=== PATIENT | male | born 1970 | race Caucasian/White ===

== ENCOUNTER → 2023-07-28 23:59 | Outpatient (BNV) | payer MEDICAID, SELFPAY | PROVIDERS: Visit Provider Internal Medicine Cardiovascular Disease | DX: I21.02 ST elevation (STEMI) myocardial infarction involving left anterior descending coronary artery (principal) | CPT/HCPCS: 92941; 92978; 93458; 99152 ==

== ENCOUNTER 2023-08-19 08:47 | Outpatient (AMB) | payer MEDICAID, SELFPAY ==
[2023-08-19 08:50] VITALS: BP 90/60; PULSE 71
--- NOTE | 2023-08-19 08:50 | A.OFFVIS_ITS ---
Intake Vital Signs 08/19/23 08:50 Weight 163 lb 2.273 oz BP 90/60 Blood Pressure Location Lt brachial Position Sitting Pulse 71 Pulse Source Pulse Oximeter Intake Visit Reasons: Cath fu (KM) Ophthalmology Surgical Technician Required: Yes Ophthalmology Surgical Technician Name: [id number] cesar Medication List - Last Reconciled 08/19/23 by Anabel Mcclellan, PIETRO-C aspirin (Adult Aspirin Regimen) 81 mg PO DAILY atorvastatin 80 mg PO BEDTIME carvedilol 6.25 mg PO BID colchicine 0.6 mg PO BID nicotine 1 patch transdermal DAILY ticagrelor 90 mg PO BID valsartan 40 mg PO BID varenicline 0.5 mg PO BID HPI Cath fu () HPI Details Louis is a 53-year-old male with past medical history of hypertension, smoking who recently presented to [facility] with chest discomfort. He was transferred to [facility] with anterior STEMI. Underwent cardiac catheterization with stenting of the proximal LAD. His EF was reduced and he was sent home with LifeVest and appropriate med management. Today he reports he has been doing well since his hospital discharge. He denies having recurrent chest discomfort like what he presented to the hospital with. He has had quick sharp pains to his left chest lasting a 2nd and resolving. No shortness of breath, palpitations, lightheadedness, presyncope, syncope, PND, orthopnea or edema. Taking all meds as directed. No bleeding issues reported. Certified drafter automotive design used. Patient hearing impaired. HPI Comments History of Present Illness Details Bartolome is a 53 yo male [facility] History History of cardiac cath Family History Brother Diabetes High blood pressure Social History Patient Tobacco Use Status: Former Tobacco user Review of Systems Const All systems reviewed & are unremarkable except as noted in HPI and below ENT Denies dizziness Card Denies chest pain, Denies chest pain at rest, Denies chest pain with activity, Denies rapid heart rate, Denies pedal edema, Denies edema, Denies leg edema, Denies lightheadedness, Denies palpitations, Denies dyspnea, Denies dyspnea on exertion and Denies orthopnea Resp Denies cough, Denies dyspnea and Denies dyspnea on exertion GI Denies hematochezia and Denies change in stool character Musc Denies abnormal gait, Denies limited range of motion, Denies muscle cramps, Denies muscle weakness, Denies numbness, Denies radiating pain into limb, Denies stiffness and Denies tingling Neuro Denies abnormal gait, Denies dizziness, Denies numbness and Denies tingling Endo Denies palpitations Physical Exam Vital Signs: Last Vital Signs Pulse 71 08/19/23 08:50 BP 90/60 08/19/23 08:50 Const General: cooperative, healthy appearing, comfortable and no acute distress Orientation/consciousness: patient oriented x3 Neck Neck: Yes normal visual inspection and Yes no JVD Resp Effort & Inspection: normal respiratory effort Auscultation: clear to auscultation bilaterally, no crackles, no rales, no rhonchi and no wheezes Cardio Jugular venous distension: no JVD Rate: regular rate Rhythm: regular rhythm Heart sounds: S1 normal heart sound present, S2 normal heart sound present, no murmurs and no rubs Neuro General: patient oriented x3 Extrem General: Yes normal to inspection and No no pedal edema Psych Appearance: grossly normal Mental Status: mental status grossly normal Speech and movement: Normal speech and movement present Assessment & Plan Assessment & Plan (1) STEMI (ST elevation myocardial infarction): Code(s): I21.3 - ST elevation (STEMI) myocardial infarction of unspecified site Plan: Anterior STEMI 07/28/2023. Underwent emergent cardiac catheterization at [facility] for chest discomfort, elevated troponin and ST elevations on EKG. Cardiac catheterization showed proximal LAD, mid portion 90% stenosis with thrombus present, 1st diagonal 100% stenosis. A ASHLEY was placed to the LAD. His echocardiogram showed EF 35% with anterior wall hypokinesis. While at [facility] he did port recurrent chest discomfort and was treated for pericarditis, started on colchicine 0.6 mg b.i.d.. He was started on aspirin indefinitely. Brilinta 90 mg b.i.d. uninterrupted for at least 1 year. High- dose atorvastatin, carvedilol, valsartan. Nicotine patch was given to help with smoking cessation. Today he reports doing well with no recurrent chest discomfort like what brought him to the emergency room. He has had quick sharp pains to the left chest region. He starts cardiac rehab next week. He is wearing his LifeVest faithfully. He has received no shocks from the device. Has been doing only light activities but plans to return to work, light duty this week. He works as a cashier ticket selling and stocking person. Will plan for a limited echocardiogram 4-6 weeks post HI to reassess EF. If EF is greater than 35% then will plan to discontinue LifeVest. Continue current med management. Signs and symptoms of angina reviewed. Cardiology follow-up in 2-3 months, sooner if needed. (2) HTN (hypertension): Code(s): I10 - Essential (primary) hypertension Plan: Running on the low side today. Asymptomatic. Continue current meds. (3) Smoking: Code(s): F17.200 - Nicotine dependence, unspecified, uncomplicated Plan: Working on cessation. Using nicotine patch (4) History of cardiac cath: Comment: 07/28/2023, left main normal, lad proximal mid 90% stenosis, thrombus present, 1st diagonal 100% stenosis, RCA mild irregularities less than 30%, left circumflex minimal irregularities, proximal ostial less than 30% stenosis, ASHLEY placed to the LAD. Code(s): Z98.890 - Other specified postprocedural states Plan: Right radial catheterization site healing well (5) Hospital discharge follow-up: Code(s): Z09 - Encounter for follow-up examination after completed treatment for conditions other than malignant neoplasm Plan: As above Plan Time spent on chart review, documentation, interview and assessment Orders: Orders CA echo limited [address]3 - [address] elevation (STEMI) myocardial infarction of unspecified site Coding Level of Care Code Est Pt Level 4 (82589) Diagnoses STEMI (ST elevation myocardial infarction) I21.3 HTN (hypertension) I10 Smoking F17.200 History of cardiac cath Z98.890 Hospital discharge follow-up Z09 Time Spent (min) 28
== END 2023-08-19 09:35 | disposition home or self-care (01) ==
PROVIDERS: PCP Nurse Practitioner Family; Visit Provider Nurse Practitioner Family
DX: I21.3 ST elevation (STEMI) myocardial infarction of unspecified site (principal); I10 Essential (primary) hypertension; F17.200 Nicotine dependence, unspecified, uncomplicated; Z98.890 Other specified postprocedural states; Z09 Encounter for follow-up examination after completed treatment for conditions other than malignant neoplasm
CPT/HCPCS: 99214

== ENCOUNTER → 2023-08-19 08:47 | Outpatient (BNVA) | payer MEDICAID, SELFPAY | PROVIDERS: PCP Nurse Practitioner Family; Visit Provider Nurse Practitioner Family | DX: Z09 Encounter for follow-up examination after completed treatment for conditions other than malignant neoplasm (principal); I10 Essential (primary) hypertension; I21.3 ST elevation (STEMI) myocardial infarction of unspecified site; F17.200 Nicotine dependence, unspecified, uncomplicated; Z98.890 Other specified postprocedural states | CPT/HCPCS: 99212 ==

== ENCOUNTER → 2023-09-13 10:44 | Outpatient (REF) | payer MEDICAID, SELFPAY ==
--- NOTE | 2023-09-13 10:52 | CA_ITS ---
Transthoracic Echocardiogram Patient (Last, First, Middle): Bartolome Spencer, Gender: Male Date of : 1970 Age: 53 Procedure Date: 09/13/2023 Procedure Type: Transthoracic Echocardiogram Location: OP Height: 172.72 cm Weight: 73.03 kg BSA: 1.86 m2 Heart Rate: bpm BP: 122 / 85 mmHg Keno Attendant: YOLANDA Parada MD: Anabel Mcclellan WIND PROJECTS SUPERVISOR-C Expenditure Requisition Clerk: Jonathan Santana MD Symptoms: I21.3 - ST elevation (STEMI) myocardial infarction of unspecified site Study Quality: Adequate w/Contrast ECG Rhythm: Sinus Conclusions: - Moderately reduced LV ejection fraction of 35-40% with LAD territory wall motion abnormality with grade 1 diastolic dysfunction Findings Procedure Information Contrast agent, definity, is being given per protocol without apparent complications. Left Ventricle Mildly increased left ventricular cavity size. The left ventricular systolic function is moderately decreased. The visually estimated ejection fraction is between 35-40%. Spectral Doppler is indicative of an impaired relaxation filling pattern. E/E prime ratio is <8, consistent with normal filling pressures. Wall Motion Rest Echo Findings The anterior wall and mid anteroseptal segment are hypokinetic. The inferoseptal wall and apical septum segment are akinetic. All other scored wall segments showed normal motion. Prior Study Comparison No prior study available for comparison. Measurements 2D Linear Measurements IVSd: 0.90 0.6-0.9/0.6-1.0 cm LVIDd: 5.73 3.9-5.3/4.2-5.9 cm LVIDd Index: 3.08 2.4-3.2/2.2-3.1 cm/m2 LVIDs: 4.49 2.0-3.6 cm LVPWd: 0.96 0.7-1.1 cm LV Mass: 257.82 67-162/88-224 g LV Mass Index: 138.61 43-95/49-115 g/m2 LVOT Diam: 2.00 3.0+(-)1.3 cm 2D Systolic Function EF 4C: 39.90 >55% EF 2C: 37.30 >55% EF BiP: 38.10 >55% Mitral Valve MV Pk E: 0.84 MV PK A: 0.32 MV Decel Time: 161.00 E/A: 2.60 E'Lateral: 9.25 E'Medial: 6.31 E/E' Med: 13.40 E/E' Lat: 9.10 PHT: 47.00 MVA PHT: 4.68 Decel [place]: 5.25 LVOT LVOT Diam: 2.00 LVOT Area: 3.14 Diastolic Function MV Pk E: 0.84 MV Pk A: 0.32 E/A: 2.60 E'Medial: 6.31 E/E' Med: 13.40 E' Laterial: 9.25 E/E' Lat: 9.10 Updated in Other Vendor System with Status of Final Jonathan Santana MD electronically signed on 09/14/2023 6:06:57 AM with status of Final
== END ==
LOC: HO.CARD 10:44
PROVIDERS: PCP Nurse Practitioner Family; Visit Provider Nurse Practitioner Family
DX: I21.3 ST elevation (STEMI) myocardial infarction of unspecified site (principal)
CPT/HCPCS: 93308; Q9957

== ENCOUNTER → 2023-09-13 10:52 | Outpatient (BNV) | payer MEDICAID, SELFPAY | PROVIDERS: PCP Nurse Practitioner Family; Visit Provider Internal Medicine Cardiovascular Disease | DX: I21.3 ST elevation (STEMI) myocardial infarction of unspecified site (principal) | CPT/HCPCS: 93308 ==

== ENCOUNTER 2023-09-20 09:27 | Outpatient (AMB) | payer MEDICAID, SELFPAY ==
--- NOTE | 2023-09-20 10:05 | HO.SPINEOV ---
Intake Visit Reasons: low back pain Intake Note: is here today c/o Low back pain. Ground Operations Superintendent Required: Yes Ground Operations Superintendent Name: ASL Tablet Assessment & Plan Assessment & Plan (1) Lumbar radiculopathy: Code(s): M54.16 - Radiculopathy, lumbar region Category: Medical Plan Dear Darling, Thank you for referring Mr Spencer to our office today. He is a very nice hearing impaired 53-year-old gentleman who has had about 2 years of pain starting in his low back going down into his left buttock, left posterolateral thigh and into his outer calf and top of his foot. There is also tingling and numbness associated with this. He also reports seeing abnormal movements of his foot. To this point he has done no dedicated conservative treatment other than taking hot baths and an occasional [id number] pain medication as needed. Denies any pain in the right leg. No physical therapy or injections yet. He underwent an MRI showing some mild degenerative disc disease and was sent for evaluation. The pain will get worse as he is up and moving around throughout the day, but if he has a day where he is not doing all that much it has not all that bothersome. PMH: Had an [facility] about a month and a half ago, he could not give me extensive details but it sounds like it was significant 1, they are continuing to monitor his heart with some type of remote device. He underwent a stent placement and has been on Brilinta and aspirin. He has hypertension, recently quit smoking because of his heart attack but outside of that denies any problems with other medical conditions including pulmonary problems, kidney problems, liver problems, previous back surgery, previous abdominal surgery, cancer, stroke Social hx: Quit smoking about a month and a half ago, denies any significant alcohol use, no recreational drugs Medications: Carvedilol, colchicine, baby aspirin, Brilinta, variance I clean, Lipitor and valsartan Allergies: None Physical exam: Awake alert oriented, I used a hearing impaired still operator gin through the [employer] video phone device to help with this visit. He has full strength of bilateral lower extremities but has absent reflexes at the patella and the Achilles. He does have fasciculations of his toes on the 2nd and 3rd toes with intermittent contractions. No sensory loss. Imaging review: He has a lumbar MRI done at [facility] in July of 2023 showing some very mild disc degeneration but no nerve compression. Impression: 53-year-old male presents with what sounds like an L5 radiculopathy but no MRI findings that appear compatible with compressive etiology. He does have subjective sensory changes but no focal sensation loss on exam. He does have fasciculations of his toes on the left foot. He also has absent reflexes. I am not sure what to make of the source with the symptoms, but I am going to send him for an EMG to see if we can localize something with that. Depending on the results, we can triage him from there. I would consider cortisone injection but because of his dual anti-platelet therapy right after heart attack I do not think he would be a candidate. I will call him with the EMG results. Thank you for allowing us to care for your patient. The total time spent with this visit with this patient was 45 minutes reviewing history, physical exam, lumbar imaging review, and implementation of treatment plan or further diagnostic testing Yousuf Blankenship MD,PhD [facility] Orders: Orders NE electromyogram (EMG) Today M54.16 - Radiculopathy, lumbar region Coding Level of Care Code New Pt Level 4 (18111) Diagnoses Lumbar radiculopathy M54.16
== END 2023-09-20 10:53 | disposition home or self-care (01) ==
PROVIDERS: PCP Nurse Practitioner Family; Visit Provider Physician Assistant
DX: M54.16 Radiculopathy, lumbar region (principal)
CPT/HCPCS: 99204

== ENCOUNTER → 2023-09-20 09:27 | Outpatient (BNVA) | payer MEDICAID, SELFPAY | PROVIDERS: PCP Nurse Practitioner Family; Visit Provider Physician Assistant | DX: M54.16 Radiculopathy, lumbar region (principal) | CPT/HCPCS: 99212 ==

== ENCOUNTER 2023-09-27 12:52 | Outpatient (REF) | payer MEDICAID, SELFPAY ==
--- NOTE | 2023-09-27 12:57 | HM_ITS ---
* Total procedure length 30 days. Wear time 25 days. * Underlying rhythm is sinus, with an average ventricular rate of 82/Min. * About 37% of the time, rate > 100/Min. * No significant tachyarrhythmias. * No significant pauses or high-grade AV blocks. * Symptoms of chest pressure, dizziness, shortness of breath associated with sinus rhythm/sinus tachycardia. MTDD
--- NOTE | 2023-09-27 12:57 | EMG_ITS ---
Chief complaint: At least 2 years of numbness on left foot. Denies back pain. Denies upper extremity symptoms. Twitching on left toes seen. No other fasciculations seen on other parts of the body. MMT 5/5 bilateral upper and lower extremities. Depressed reflex on left patella and Achillis. No clonus. No spasticity seen. Flat EDB muscle on left. Reason for referral: Evaluate for neuropathy Referred by: Yousuf GONSALES Procedure done: Order was for left lower extremity, right lower extremity done for comparison Precautions and/or limitations: Hearing impairment, seen with distribution sales representative. The limb temperature was monitored continuously and remained between 32-36 degrees C during the performance of the NCS. Nerve Conduction Studies Anti Sensory Summary Table ?Stim Site NR Onset (ms) Norm Onset (ms) Peak (ms) Norm Peak (ms) O-P Amp (?V) Norm O-P Amp Site1 Site2 Delta-0 (ms) Dist (cm) Antonio (m/s) Norm Antonio (m/s) Left Sural Anti Sensory (Lat Mall) Calf ? 2.9 3.7 <4.0 7.7 >5.0 Calf Lat Mall 2.9 14.0 48 Right Sural Anti Sensory (Lat Mall) Calf ? 3.4 3.8 <4.0 3.3 >5.0 Calf Lat Mall 3.4 14.0 41 #2 ? 3.3 4.0 2.6 #3 ? 2.8 3.7 3.1 Motor Summary Table ?Stim Site NR Onset (ms) Norm Onset (ms) O-P Amp (mV) Norm O-P Amp iAmp (mV) Amp (1st) (%) Site1 Site2 Delta-0 (ms) Dist (cm) Antonio (m/s) Norm Antonio (m/s) Left Peroneal Motor (Ext Dig Brev) Ankle ? 6.6 <4.0 1.1 >2.5 1.3 100.0 Ankle Ext Dig Brev 6.6 0.0 B Fib ? 15.8 0.9 1.0 81.8 B Fib Ankle 9.2 32.5 35 >40 Poplt ? 17.3 1.0 1.0 90.9 Poplt B Fib 1.5 5.0 33 >40 Right Peroneal Motor (Ext Dig Brev) Ankle ? 4.9 <4.0 4.1 >2.5 5.5 100.0 Ankle Ext Dig Brev 4.9 0.0 B Fib ? 13.0 3.9 5.4 95.1 B Fib Ankle 8.1 31.5 39 >40 Poplt ? 14.2 3.9 5.2 95.1 Poplt B Fib 1.2 6.0 50 >40 Left Tibial Motor (Abd Eric Brev) Ankle ? 4.6 <5 3.1 >2.5 4.4 100.0 Ankle Abd Eric Brev 4.6 0.0 Knee ? 15.2 2.9 4.2 93.5 Knee Ankle 10.6 39.0 37 >40 H Reflex Studies ?NR H-Lat (ms) L-R H-Lat (ms) L-R Lat Norm Left Tibial (Gastroc) ? NR <2.0 Right Tibial (Gastroc) NR <2.0 EMG ?Side Muscle Nerve Root Ins Act Fibs Psw Amp Dur Poly Recrt Int Pat Comment Right AbdHallucis MedPlantar S1-2 Nml Nml Nml Nml Nml 0 Nml Complete Right AntTibialis Dp Br Peron L4-5 Incr 1+ 1+ Nml Nml 0 Nml Complete Right PostTibialis Tibial L5, S1 Incr 1+ 1+ Nml Nml 0 Nml Complete Right MedGastroc Tibial S1-2 Nml Nml Nml Nml Nml 0 Nml Complete Right VastusMed Femoral L2-4 Nml Nml Nml Nml Nml 0 Nml Complete Left AbdHallucis MedPlantar S1-2 Nml Nml Nml Nml Nml 0 Nml Complete Left AntTibialis Dp Br Peron L4-5 Nml Nml Nml Nml Nml 0 Nml Complete Left PostTibialis Tibial L5, S1 Nml Nml Nml Nml Nml 0 Nml Complete Left MedGastroc Tibial S1-2 Incr 1+ 1+ Nml Nml 0 Nml Complete Left VastusMed Femoral L2-4 Nml Nml Nml Nml Nml 0 Nml Complete Paraspinal EMG ?Side Muscle Nerve Root Ins Act Fibs Psw Comment Right Lumbar Upper Rami Nml Nml Nml Right Lumbar Mid Rami Nml Nml Nml Right Lumbar Lower Rami Nml Nml Nml Left Lumbar Upper Rami Nml Nml Nml Left Lumbar Mid Rami Nml Nml Nml Left Lumbar Lower Rami Nml Nml Nml FINDINGS: Left peroneal nerve showed prolonged distal latency, small amplitude and slow conduction velocity. Right peroneal nerve showed prolonged distal latency, bigger amplitudes compared to left, and slow conduction velocity distally . Left tibial nerve showed normal distal latency, normal amplitudes with slow conduction velocity. Right sural nerve showed smaller amplitude compared to left, with normal peak latencies. Left sural nerve was within normal. H reflexes were absent, bilateral. Concentric needle EMG was performed in selected muscles of the bilateral lower extremity and lumbar paraspinals. Study revealed signs of electric abnormalities as shown in the table below. Right tibialis anterior, right posterior tibialis, left medial gastrocnemius showed increased insertional activity, small PSWs and small fibrillations. No denervation seen on lumbar paraspinals. IMPRESSION: 1. This is an abnormal study. 2. 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 Thank you for your kind referral. Raine Morrow MD, [place] Board Certified, [place] Board of Physical Medicine and Rehabilitation (ABPMR) Board Certified, [place] Board of Electrodiagnostic Medicine (ABEM) CODIN 18073 x 2 MTDD
== END 2023-09-27 12:53 | disposition home or self-care (01) ==
LOC: HO.NEURO 12:52
PROVIDERS: PCP Nurse Practitioner Family; Visit Provider Physician Assistant
DX: I42.9 Cardiomyopathy, unspecified (principal); M54.16 Radiculopathy, lumbar region
CPT/HCPCS: 93270; 95886; 95910

== ENCOUNTER → 2023-09-27 12:57 | Outpatient (BNV) | payer MEDICAID, SELFPAY | PROVIDERS: PCP Nurse Practitioner Family; Visit Provider Physical Medicine & Rehabilitation | DX: M79.672 Pain in left foot (principal); M79.671 Pain in right foot; R20.2 Paresthesia of skin | CPT/HCPCS: 95886; 95910 ==

== ENCOUNTER → 2023-09-27 12:57 | Outpatient (BNV) | payer MEDICAID, SELFPAY | PROVIDERS: PCP Nurse Practitioner Family; Visit Provider Internal Medicine | DX: R00.0 Tachycardia, unspecified (principal) | CPT/HCPCS: 93272 ==

== ENCOUNTER 2023-12-06 08:30 | Outpatient (AMB) | payer MEDICAID, SELFPAY ==
[2023-12-06 08:51] VITALS: BP 128/78; PULSE 68; BMI 24.5
--- NOTE | 2023-12-06 08:51 | MHC.OFFVIS ---
Vital Signs 12/06/23 08:51 Height 5 ft 8 in Weight 160 lb 14.999 oz BMI 24.5 BP 128/78 Blood Pressure Location Lt brachial Position Sitting Pulse 68 Pulse Source Monitor Intake Visit Reasons: f/up rebollar echo Speed Belt Sander Required: Yes Speed Belt Sander Name: no one available Medication List - Last Reconciled 12/06/23 by Anabel Mcclellan, OIL TANKER CAPTAIN-C aspirin (Adult Aspirin Regimen) 81 mg PO DAILY atorvastatin 80 mg PO BEDTIME carvedilol 6.25 mg PO BID 90 days colchicine 0.6 mg PO BID 90 days sacubitril-valsartan 24-26 mg (Entresto) 1 tab PO BID ticagrelor 90 mg PO BID 90 days varenicline 1 mg PO BID 90 days HPI HPI f/up rebollar echo: Details: Bartolome is a 53-year-old male with past medical history of hypertension, smoking who recently presented to [facility] with chest discomfort. He was transferred to [facility] with anterior STEMI. Underwent cardiac catheterization with stenting of the proximal LAD. His EF was reduced and he was sent home with LifeVest and appropriate med management. He underwent a repeat limited echo showing EF 35-40% and Lifevest was discontinued. He wore and cardiac event monitor and now presents for follow up. Today he reports he has been doing well since his last visit. He denies having recurrent issues with chest discomfort. No shortness of breath, palpitations, lightheadedness, presyncope, syncope, PND, orthopnea or edema. Taking all meds as directed. No bleeding issues reported. He is able to lip read and speak during this visit and declines the need for infrastructure design engineer. Patient hearing impaired. [facility] Surgical History History of cardiac cath Family History Brother Diabetes High blood pressure Social History Patient Tobacco Use Status: Former Tobacco user Review of Systems Const All systems reviewed & are unremarkable except as noted in HPI and below Denies weakness ENT Denies dizziness Card Denies chest pain, Denies chest pain with activity, Denies syncope, Denies rapid heart rate, Denies pedal edema, Denies edema, Denies leg edema, Denies lightheadedness, Denies palpitations, Denies dyspnea, Denies dyspnea on exertion and Denies orthopnea Resp Denies cough, Denies dyspnea and Denies dyspnea on exertion GI Denies hematochezia and Denies change in stool character Musc Denies abnormal gait, Denies muscle cramps, Denies muscle weakness, Denies numbness, Denies radiating pain into limb and Denies tingling Neuro Denies abnormal gait, Denies dizziness, Denies syncope, Denies numbness, Denies tingling and Denies weakness Endo Denies palpitations Physical Exam Vital Signs: Last Vital Signs Pulse 68 12/06/23 08:51 BP 128/78 12/06/23 08:51 BMI result Body Mass Index 24.5 Const General: cooperative, healthy appearing, comfortable and no acute distress Orientation/consciousness: patient oriented x3 Neck Neck: Yes normal visual inspection and Yes no JVD Resp Effort & Inspection: normal respiratory effort Auscultation: clear to auscultation bilaterally, no crackles, no rales, no rhonchi and no wheezes Cardio Jugular venous distension: no JVD Rate: regular rate Rhythm: regular rhythm Heart sounds: S1 normal heart sound present, S2 normal heart sound present, no murmurs and no rubs Neuro General: patient oriented x3 Extrem General: Yes normal to inspection and No no pedal edema Psych Appearance: grossly normal Mental Status: mental status grossly normal Speech and movement: Normal speech and movement present Office Procedures EKG Details: Today, read by me, Sinus rhythm, anteroseptal infarct, rate 68, QTc 404ms [id number], Complete Assessment & Plan Assessment & Plan (1) STEMI (ST elevation myocardial infarction): Code(s): I21.3 - ST elevation (STEMI) myocardial infarction of unspecified site Category: Medical Plan: Anterior STEMI 07/28/2023. Underwent emergent cardiac catheterization at [facility] for chest discomfort, elevated troponin and ST elevations on EKG. Cardiac catheterization showed proximal LAD, mid portion 90% stenosis with thrombus present, 1st diagonal 100% stenosis. A ASHLEY was placed to the LAD. His echocardiogram showed EF 35% with anterior wall hypokinesis. While at [facility] he did port recurrent chest discomfort and was treated for pericarditis, started on colchicine 0.6 mg b.i.d.. He was started on aspirin indefinitely. Brilinta 90 mg b.i.d. uninterrupted for at least 1 year. High-dose atorvastatin, carvedilol, valsartan. Nicotine patch was given to help with smoking cessation. He did complete a few sessions of cardiac rehab. A limited echocardiogram was done on 4261 showing EF 35-40%, LAD territory wall motion abnormality, grade 1 diastolic dysfunction. His life vest was discontinued following that result. His valsartan was changed to Entresto. He did undergo a cardiac event monitor on 09/27/2023 which he wore for 25 days showing sinus rhythm with average heart rate 82, 37% of the time greater than 100, no significant tachyarrhythmias seen. Today he reports doing well with no recurrent chest discomfort. 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 He reports good activity tolerance. Continue current aspirin, Brilinta, atorvastatin, carvedilol and Entresto. Will have him stop colchicine at this time as it has been used greater than 3 months and he has no chest discomfort. Will have him update labs including CMP and lipids. Signs and symptoms of angina reviewed. Cardiology follow-up in 3 months, sooner if needed. (2) HTN (hypertension): Code(s): I10 - Essential (primary) hypertension Category: Medical Plan: Well controlled at this time. Continue carvedilol, Entresto. (3) Smoking: Code(s): F17.200 - Nicotine dependence, unspecified, uncomplicated Category: Social Hx Plan: Working on cessation. Still using nicotine patch. Admits to smoking a few cigarettes daily. (4) History of cardiac cath: Comment: 07/28/2023, left main normal, lad proximal mid 90% stenosis, thrombus present, 1st diagonal 100% stenosis, RCA mild irregularities less than 30%, left circumflex minimal irregularities, proximal ostial less than 30% stenosis, ASHLEY placed to the LAD. Code(s): Z98.890 - Other specified postprocedural states Category: Surgical Plan: As above (5) Cardiomyopathy: Code(s): I42.9 - Cardiomyopathy, unspecified Category: Medical Plan: As above, ischemic. No signs of heart failure on examination. Continue neurohormonal modulation with carvedilol and Entresto. Not requiring diuretic therapy. Plan Time spent on chart review, documentation, interview and assessment Orders: Orders Lipid Panel Today I21.3 - ST elevation (STEMI) myocardial infarction of unspecified site Comprehensive Met. Panel Today I42.9 - Cardiomyopathy, unspecified Medications: Discontinued colchicine Give tablet and not capsule Discontinued Reason: Doctor's Order 0.6 mg PO BID 90 days 180 tabs 1RF Coding Level of Care Code Est Pt Level 4 (69519) Diagnoses STEMI (ST elevation myocardial infarction) I21.3 HTN (hypertension) I10 Smoking F17.200 History of cardiac cath Z98.890 Cardiomyopathy I42.9 CPT Codes EKG - CPT: 10816-[id number], Complete ([id number]) Time Spent (min) 28
== END 2023-12-06 09:52 | disposition home or self-care (01) ==
PROVIDERS: PCP Nurse Practitioner Family; Visit Provider Nurse Practitioner Family
DX: I21.3 ST elevation (STEMI) myocardial infarction of unspecified site (principal); I10 Essential (primary) hypertension; F17.200 Nicotine dependence, unspecified, uncomplicated; Z98.890 Other specified postprocedural states; I42.9 Cardiomyopathy, unspecified
CPT/HCPCS: 93010; 99214

== ENCOUNTER → 2023-12-06 08:30 | Outpatient (BNVA) | payer MEDICAID, SELFPAY | PROVIDERS: PCP Nurse Practitioner Family; Visit Provider Nurse Practitioner Family | DX: I10 Essential (primary) hypertension (principal); I21.3 ST elevation (STEMI) myocardial infarction of unspecified site; F17.200 Nicotine dependence, unspecified, uncomplicated; I42.9 Cardiomyopathy, unspecified; Z98.890 Other specified postprocedural states | CPT/HCPCS: 93005; 99212 ==

== ENCOUNTER 2024-02-21 08:45 | Outpatient (AMB) | payer MEDICAID, SELFPAY ==
[2024-02-21 09:07] VITALS: BP 122/78; PULSE 70; BMI 24.5
--- NOTE | 2024-02-21 09:07 | A.OFFVIS_ITS ---
Vital Signs 02/21/24 09:07 Height 5 ft 8 in Weight 160 lb 14.999 oz BMI 24.5 BP 122/78 Blood Pressure Location Lt brachial Position Sitting Pulse 70 Pulse Source Pulse Oximeter Intake Visit Reasons: 3m follow up Truck Body Builder Apprentice Required: Yes Truck Body Builder Apprentice Name: RACIEL Sign Language Allergies No Known Allergies Allergy (Verified 02/21/24 11:18) Medication List - Last Reconciled 02/21/24 by Anabel Mcclellan NP-C aspirin (Adult Aspirin Regimen) 81 mg PO DAILY atorvastatin 80 mg PO BEDTIME carvedilol 6.25 mg PO BID 90 days sacubitril-valsartan 24-26 mg (Entresto) 1 tab PO BID ticagrelor 90 mg PO BID 90 days varenicline 1 mg PO BID 90 days HPI HPI 3m follow up: Details: Bartolome is a 53-year-old male with past medical history of hypertension, smoking who presented to [facility], 07/2023 with chest discomfort. He was transferred to [facility] with anterior STEMI. Underwent cardiac catheterization with stenting of the proximal LAD. His EF was reduced and he was sent home with LifeVest and appropriate med management. He underwent a repeat limited echo showing EF 35-40% and Lifevest was discontinued. He wore and cardiac event monitor which did not show significant arrhythmia. He now presents for follow up. Today he reports he has been doing well since his last visit in November. He denies having recurrent issues with chest discomfort. No shortness of breath, palpitations, lightheadedness, presyncope, syncope, PND, orthopnea or edema. Taking all meds as directed. No bleeding issues reported. He has good activity tolerance. He is hearing impaired. licensed social worker used at this visit. [facility] Surgical History History of cardiac cath Family History Brother Diabetes High blood pressure Social History Patient Tobacco Use Status: Former Tobacco user Review of Systems Const All systems reviewed & are unremarkable except as noted in HPI and below Denies weakness ENT Denies dizziness Card Denies chest pain, Denies chest pain with activity, Denies syncope, Denies rapid heart rate, Denies pedal edema, Denies edema, Denies leg edema, Denies lightheadedness, Denies palpitations, Denies dyspnea, Denies dyspnea on exertion and Denies orthopnea Resp Denies cough, Denies dyspnea and Denies dyspnea on exertion GI Denies hematochezia and Denies change in stool character Musc Denies abnormal gait, Denies muscle cramps, Denies muscle weakness, Denies numbness, Denies radiating pain into limb and Denies tingling Neuro Denies abnormal gait, Denies dizziness, Denies syncope, Denies numbness, Denies tingling and Denies weakness Endo Denies palpitations Physical Exam Vital Signs: Last Vital Signs Pulse 70 02/21/24 09:07 BP 122/78 02/21/24 09:07 BMI result Body Mass Index 24.5 Const General: cooperative, healthy appearing, comfortable and no acute distress Orientation/consciousness: patient oriented x3 HEENT Other: hearing impaired Neck Neck: Yes normal visual inspection and Yes no JVD Resp Effort & Inspection: normal respiratory effort Auscultation: clear to auscultation bilaterally, no crackles, no rales, no rhonchi and no wheezes Cardio Jugular venous distension: no JVD Rate: regular rate Rhythm: regular rhythm Heart sounds: S1 normal heart sound present, S2 normal heart sound present, no murmurs and no rubs Neuro General: patient oriented x3 Extrem General: Yes normal to inspection and No no pedal edema Psych Appearance: grossly normal Mental Status: mental status grossly normal Speech and movement: Normal speech and movement present Assessment & Plan Assessment & Plan (1) STEMI (ST elevation myocardial infarction): Code(s): I21.3 - ST elevation (STEMI) myocardial infarction of unspecified site Category: Medical Plan: Anterior STEMI 07/28/2023. Underwent emergent cardiac catheterization at [facility] for chest discomfort, elevated troponin and ST elevations on EKG. Cardiac catheterization showed proximal LAD, mid portion 90% stenosis with thrombus present, 1st diagonal 100% stenosis. A ASHLEY was placed to the LAD. His echocardiogram showed EF 35% with anterior wall hypokinesis. While at [facility] he did port recurrent chest discomfort and was treated for pericarditis, started on colchicine 0.6 mg b.i.d.. He was started on aspirin indefinitely. Brilinta 90 mg b.i.d. uninterrupted for at least 1 year. High- dose atorvastatin, carvedilol, valsartan. He did complete a few sessions of cardiac rehab. A limited echocardiogram was done on 09/13/23 showing EF 35-40%, LAD territory wall motion abnormality, grade 1 diastolic dysfunction. His life vest was discontinued following that result. His valsartan was changed to Entresto. He did undergo a cardiac event monitor on 09/27/2023 which he wore for 25 days showing sinus rhythm with average heart rate 82, 37% of the time greater than 100, no significant tachyarrhythmias seen. Today he reports doing well with no recurrent chest discomfort. 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 He reports good activity tolerance. Continue current aspirin, Brilinta, atorvastatin, carvedilol and Entresto. He tells me labs are followed by his PCP. Will reach out to that office to see if they have an updated lipid profile. Signs and symptoms of angina reviewed. Cardiology follow-up in 3-4 months, sooner if needed. (2) HTN (hypertension): Code(s): I10 - Essential (primary) hypertension Category: Medical Plan: Well controlled at this time. Continue carvedilol, Entresto. (3) Smoking: Code(s): F17.200 - Nicotine dependence, unspecified, uncomplicated Category: Social Hx Plan: Working on cessation. (4) History of cardiac cath: Comment: 07/28/2023, left main normal, lad proximal mid 90% stenosis, thrombus present, 1st diagonal 100% stenosis, RCA mild irregularities less than 30%, left circumflex minimal irregularities, proximal ostial less than 30% stenosis, ASHLEY placed to the LAD. Code(s): Z98.890 - Other specified postprocedural states Category: Surgical Plan: As above (5) Cardiomyopathy: Code(s): I42.9 - Cardiomyopathy, unspecified Category: Medical Plan: As above, ischemic. No signs of heart failure on examination. Continue neurohormonal modulation with carvedilol and Entresto. Not requiring diuretic therapy. Plan Time spent on chart review, documentation, interview and assessment Medications: Refilled sacubitril-valsartan 24-26 mg (Entresto) 1 tab PO BID 180 tabs 3RF carvedilol must administer with a meal/food 6.25 mg PO BID 90 days 180 tabs 3RF Coding Level of Care Code Est Pt Level 4 (19091) Complex EM visit Add On G2211 Diagnoses STEMI (ST elevation myocardial infarction) I21.3 HTN (hypertension) I10 Smoking F17.200 History of cardiac cath Z98.890 Cardiomyopathy I42.9 Time Spent (min) 30
== END 2024-02-21 09:33 | disposition home or self-care (01) ==
PROVIDERS: PCP Nurse Practitioner Family; Visit Provider Nurse Practitioner Family
DX: I21.3 ST elevation (STEMI) myocardial infarction of unspecified site (principal); I10 Essential (primary) hypertension; F17.200 Nicotine dependence, unspecified, uncomplicated; Z98.890 Other specified postprocedural states; I42.9 Cardiomyopathy, unspecified
CPT/HCPCS: 99214

== ENCOUNTER → 2024-02-21 08:45 | Outpatient (BNVA) | payer MEDICAID, SELFPAY | PROVIDERS: PCP Nurse Practitioner Family; Visit Provider Nurse Practitioner Family | DX: I10 Essential (primary) hypertension (principal); I21.3 ST elevation (STEMI) myocardial infarction of unspecified site; I42.9 Cardiomyopathy, unspecified; Z87.891 Personal history of nicotine dependence; Z98.890 Other specified postprocedural states | CPT/HCPCS: 99212 ==

== ENCOUNTER 2024-05-25 13:55 | Outpatient (AMB) | payer MEDICAID, SELFPAY ==
--- NOTE | 2024-05-25 14:19 | MHC.OFFVIS ---
Vital Signs 05/25/24 14:20 Height 5 ft 8 in Weight 167 lb 15.876 oz BMI 25.5 BP 143/83 H Blood Pressure Location Rt brachial Position Sitting Pulse 95 Pulse Source Pulse Oximeter Intake Visit Reasons: 3 month f/u Medical Aides Teacher Required: Yes Medical Aides Teacher Language: Seed Packer Name: voice [email or web address] [id number] Allergies No Known Allergies Allergy (Verified 05/25/24 14:24) Medication List - Last Reconciled 05/25/24 by PATRICK Rushing aspirin (Adult Aspirin Regimen) 81 mg PO DAILY atorvastatin 80 mg PO BEDTIME carvedilol 6.25 mg PO BID 90 days sacubitril-valsartan 24-26 mg (Entresto) 1 tab PO BID varenicline 1 mg PO BID 90 days HPI HPI 3 month f/u: Details: Bartolome is a 53-year-old male with past medical history of hypertension, smoking who presented to [facility], 07/2023 with chest discomfort and ruled in for [facility]. He was transferred to [facility] with anterior STEMI. Underwent cardiac catheterization with stenting of the proximal LAD. His EF was reduced and he was sent home with LifeVest and appropriate med management. He underwent a repeat limited echo showing EF 35-40% and Lifevest was discontinued. He wore a cardiac event monitor which did not show significant arrhythmia. He now presents for follow up. Today he reports he has been doing well since his last visit in February. He denies having recurrent issues with chest discomfort. No shortness of breath, palpitations, lightheadedness, presyncope, syncope, PND, orthopnea or edema. Taking all meds as directed. No bleeding issues reported. He has good activity tolerance. 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 He is hearing impaired. interpreter and translator used at this visit. COUNTS INCLUDE 234 BEDS AT THE [facility] Surgical History History of cardiac cath Family History Brother Diabetes High blood pressure Social History Patient Tobacco Use Status: Former Tobacco user Review of Systems Const All systems reviewed & are unremarkable except as noted in HPI and below ENT Denies dizziness Card Denies chest pain, Denies chest pain at rest, Denies chest pain with activity, Denies rapid heart rate, Denies pedal edema, Denies edema, Denies leg edema, Denies lightheadedness, Denies palpitations, Denies dyspnea, Denies dyspnea on exertion and Denies orthopnea Resp Denies cough, Denies dyspnea and Denies dyspnea on exertion GI Denies hematochezia and Denies change in stool character Musc Denies abnormal gait, Denies limited range of motion, Denies muscle cramps, Denies muscle weakness, Denies numbness, Denies radiating pain into limb, Denies stiffness and Denies tingling Neuro Denies abnormal gait, Denies dizziness, Denies numbness and Denies tingling Endo Denies palpitations Physical Exam Vital Signs: Last Vital Signs Pulse 95 05/25/24 14:20 BP 143/83 H 05/25/24 14:20 BMI result Body Mass Index 25.5 Const General: cooperative, healthy appearing, comfortable and no acute distress Orientation/consciousness: patient oriented x3 HEENT Other: hearing impaired Neck Neck: Yes normal visual inspection and Yes no JVD Resp Effort & Inspection: normal respiratory effort Auscultation: clear to auscultation bilaterally, no crackles, no rales, no rhonchi and no wheezes Cardio Jugular venous distension: no JVD Rate: regular rate Rhythm: regular rhythm Heart sounds: S1 normal heart sound present, S2 normal heart sound present, no murmurs and no rubs Neuro General: patient oriented x3 Extrem General: Yes normal to inspection and No no pedal edema Psych Appearance: grossly normal Mental Status: mental status grossly normal Speech and movement: Normal speech and movement present Assessment & Plan Assessment & Plan (1) STEMI (ST elevation myocardial infarction): Code(s): I21.3 - ST elevation (STEMI) myocardial infarction of unspecified site Category: Medical Plan: Anterior STEMI 07/28/2023. Underwent emergent cardiac catheterization at [facility] for chest discomfort, elevated troponin and ST elevations on EKG. Cardiac catheterization showed proximal LAD, mid portion 90% stenosis with thrombus present, 1st diagonal 100% stenosis. A ASHLEY was placed to the LAD. His echocardiogram showed EF 35% with anterior wall hypokinesis. While at [facility] he did report recurrent chest discomfort and was treated for pericarditis, started on colchicine 0.6 mg b.i.d.. He was started on aspirin indefinitely. Brilinta 90 mg b.i.d. uninterrupted for at least 1 year. High-dose atorvastatin, carvedilol, valsartan. He did complete a few sessions of cardiac rehab. A limited echocardiogram was done on 09/13/23 showing EF 35-40%, LAD territory wall motion abnormality, grade 1 diastolic dysfunction. His life vest was discontinued following that result. His valsartan was changed to Entresto. He did undergo a cardiac event monitor on 09/27/2023 which he wore for 25 days showing sinus rhythm with average heart rate 82, 37% of the time greater than 100, no significant tachyarrhythmias seen. Today he reports he has been doing very well for the last few months. 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 No anginal symptoms. Will update echo prior to his next visit. Continue current aspirin indefinitely, Brilinta at current dose until 07/28/2023 then likely dose can be reduced to 60 mg b.i.d. for an additional 18 months. Continue high-dose, atorvastatin with LDL goal less than 70. Continue, carvedilol and Entresto for neurohormonal modulation. Will have him check labs at [facility] today including BMP, lipids. Signs and symptoms of angina reviewed. Cardiology follow-up in 3-4 months, sooner if needed. (2) HTN (hypertension): Code(s): I10 - Essential (primary) hypertension Category: Medical Plan: Well controlled at this time. Continue carvedilol, Entresto. (3) Smoking: Code(s): F17.200 - Nicotine dependence, unspecified, uncomplicated Category: Social Hx Plan: Working on cessation. (4) History of cardiac cath: Comment: 07/28/2023, left main normal, lad proximal mid 90% stenosis, thrombus present, 1st diagonal 100% stenosis, RCA mild irregularities less than 30%, left circumflex minimal irregularities, proximal ostial less than 30% stenosis, ASHLEY placed to the LAD. Code(s): Z98.890 - Other specified postprocedural states Category: Surgical Plan: As above (5) Cardiomyopathy: Code(s): I42.9 - Cardiomyopathy, unspecified Category: Medical Plan: As above, ischemic. No signs of heart failure on examination. Continue neurohormonal modulation with carvedilol and Entresto. Not requiring diuretic therapy. Plan Time spent on chart review, documentation, interview and assessment Orders: Orders Complete Blood Count Auto Diff Today I42.9 - Cardiomyopathy, unspecified CA echo transthoracic complete 08/10/24 I42.9 - Cardiomyopathy, unspecified Medications: New carvedilol must administer with a meal/food Dose increase 12.5 mg PO BID 60 tabs 5RF Discontinued carvedilol must administer with a meal/food Discontinued Reason: Doctor's Order 6.25 mg PO BID 90 days 180 tabs 3RF Coding Level of Care Code Est Pt Level 4 (66882) Complex EM visit Add On G2211 Diagnoses STEMI (ST elevation myocardial infarction) I21.3 HTN (hypertension) I10 Smoking F17.200 History of cardiac cath Z98.890 Cardiomyopathy I42.9 Time Spent (min) 28
[2024-05-25 14:20] VITALS: BP 143/83; PULSE 95; BMI 25.5
== END 2024-05-25 14:54 | disposition home or self-care (01) ==
PROVIDERS: PCP Nurse Practitioner Family; Visit Provider Nurse Practitioner Family
DX: I21.3 ST elevation (STEMI) myocardial infarction of unspecified site (principal); I10 Essential (primary) hypertension; F17.200 Nicotine dependence, unspecified, uncomplicated; Z98.890 Other specified postprocedural states; I42.9 Cardiomyopathy, unspecified
CPT/HCPCS: 99214

== ENCOUNTER 2024-05-25 13:55 | Outpatient (REF) | payer MEDICAID, SELFPAY ==
[2024-05-25 15:03] LABS: MANUAL DIFF FLAG NO
[2024-05-25 15:30] LABS: Basophils Absolute Auto 0.1 X10*3/uL (0.0-0.2); Basophils Percent Auto 1.1 % (0-2); Eosinophils Absolute Auto 0.1 X10*3/uL (0.0-0.4); Eosinophils Percent Auto 1.2 % (0-4); Hematocrit 43.3 % (42.0-52.0); Hemoglobin 14.9 g/dl (14.0-18.0); Imm Gran Abs Auto 0.02 X10*3/uL (0.00-0.03); Imm Gran Pct Auto 0.3 % (0.0-0.4); Lymphocytes Absolute Auto 2.3 X10*3/uL (1.2-4.9); Lymphocytes Percent Auto 31.6 % (20-40); Mean Corpuscular HGB Conc 34.4 g/dl (31.0-36.0); Mean Corpuscular Hemoglobin 32.6 pg (27.0-33.0); Mean Corpuscular Volume 94.7 fL (80.0-98.0); Mean Platelet Volume 10.6 fL (9.4-12.4); Monocytes Absolute Auto 0.8 X10*3/uL (0.1-1.2); Monocytes Percent Auto 11.7 % (2-11); Neutrophils Absolute Auto 3.9 x10*3/uL (2.0-8.3); Neutrophils Percent Auto 54.1 % (45-73); Platelet Count 218 X10*3/uL (160-400); Red Blood Count 4.57 X10*6/uL (4.60-5.80); Red Cell Distribution Width 13.6 % (11.0-16.0); White Blood Count 7.2 X10*3/uL (4.8-10.8)
== END 2024-05-25 13:56 | disposition home or self-care (01) ==
LOC: HO.LAB 13:55
PROVIDERS: PCP Nurse Practitioner Family; Visit Provider Nurse Practitioner Family
DX: I21.3 ST elevation (STEMI) myocardial infarction of unspecified site (principal); I42.9 Cardiomyopathy, unspecified; F17.200 Nicotine dependence, unspecified, uncomplicated; Z98.890 Other specified postprocedural states; I10 Essential (primary) hypertension
CPT/HCPCS: 36415; 85025; 99212

== ENCOUNTER → 2024-08-14 13:43 | Outpatient (REF) | payer MEDICAID, SELFPAY ==
--- NOTE | 2024-08-14 13:46 | CA_ITS ---
Transthoracic Echocardiogram Patient (Last, First, Middle): Bartolome Spencer, Gender: Male Date of : 1970 Age: 54 Procedure Date: 08/14/2024 Procedure Type: Transthoracic Echocardiogram Location: OP Height: 172.72 cm Weight: 72.58 kg BSA: 1.86 m2 Heart Rate: bpm BP: 128 / 86 mmHg Track Repair Worker: TO Referring MD: Anabel NGUYEN Parts Analyst: Jonathan Santana MD Symptoms: I42.9 - Cardiomyopathy, unspecified Study Quality: Adequate w contrast ECG Rhythm: Sinus Conclusions: - 1. Moderately dilated LV with moderately reduced LV ejection fraction 35-40% with wall motion abnormality in LAD territory consistent with prior myocardial infarction and consistent with ischemic cardiomyopathy with impaired relaxation filling pattern 2. No significant abnormality of cardiac valvular Dopplers 3. No gross pericardial effusion Findings Procedure Information Contrast agent, definity, is being given per protocol without apparent complications. Left Ventricle Moderately increased left ventricular cavity size. There is normal left ventricular wall thickness. The left ventricular systolic function is moderately decreased. The visually estimated ejection fraction is between 35 40%. Spectral Doppler is indicative of an impaired relaxation filling pattern. Wall Motion Rest Echo Findings The basal inferior and apical lateral segments are hypokinetic. The entire septum, the apex, apical anterior, and mid anterior segments are akinetic. All other scored wall segments showed normal motion. Right Ventricle Normal right ventricular cavity size and systolic function. Atria The left atrium is mildly dilated. There is no evidence of interatrial shunt. The right atrium is normal in size. Aortic Valve There is mild calcification of the aortic valve. There is no aortic valve stenosis. There is no aortic valve regurgitation. Mitral Valve There is mild anterior and posterior mitral leaflet thickening. There is trace mitral valve regurgitation. There is no mitral valve stenosis. Pulmonic Valve The pulmonic valve is likely normal. There is trace to mild pulmonic valve regurgitation. Tricuspid Valve Tricuspid regurgitation envelope is inadequate for calculation of right ventricular systolic pressure. Normal right atrial pressure. There is no evidence of pulmonary hypertension. Great Vessels All visible segments of the aorta are normal in size. The pulmonary artery was not well visualized. There is no dilatation of the ascending aorta measuring 3.40 cm. Venous The inferior vena cava is normal in size and collapses greater than 50% with inspiration. Pericardium/Pleural There is no evidence of pericardial effusion. Prior Study Comparison No significant change compared to prior study dated: 09/13/2023. Measurements 2D Linear Measurements IVSd: 0.83 0.6-0.9/0.6-1.0 cm LVIDd: 6.43 3.9-5.3/4.2-5.9 cm LVIDd Index: 3.46 2.4-3.2/2.2-3.1 cm/m2 LVIDs: 5.44 2.0-3.6 cm LVPWd: 0.71 0.7-1.1 cm LA Diam: 3.80 2.7-3.8/3.0-4.0 cm LAIDs Index: 2.04 1.5-2.3 cm/m2 LV Mass: 250.43 67-162/88-224 g LV Mass Index: 134.64 43-95/49-115 g/m2 LVOT Diam: 2.20 3.0+(-)1.3 cm 2D Systolic Function EF 4C: 39.40 >55% EF 2C: 34.60 >55% EF BiP: 37.10 >55% Aortic Valve AoV Pk Antonio: 1.15 AoV Mn Antonio: 0.86 AoV VTI: 0.21 AoV Pk Grad: 5.00 Aov Mn Grad: 3.00 ROLANDO Cont.VTI: 2.34 LVOT LVOT Pk Antonio: 0.73 LVOT Mn Antonio: 0.50 LVOT VTI: 0.13 LVOT Pk Grad: 2.00 LVOT Mn Grad: 1.00 LVOT Diam: 2.20 LVOT Area: 3.80 Right Ventricle TAPSE (mm): 22.40 TVS' Antonio: 13.20 Tricuspid Valve RA Press: 3.00 Great Vessels Aorta Sinus of Valsalva: 3.42 2.0-3.5 cm Ao Asc: 3.40 2.1-3.4 cm Updated in Other Vendor System with Status of Final Jonathan Santana MD electronically signed on 08/15/2024 12:23:07 PM with status of Final
== END ==
LOC: HO.CARD 13:43
PROVIDERS: PCP Nurse Practitioner Family; Visit Provider Nurse Practitioner Family
DX: I42.9 Cardiomyopathy, unspecified (principal)
CPT/HCPCS: 93306; Q9957

== ENCOUNTER → 2024-08-14 13:46 | Outpatient (BNV) | payer MEDICAID, SELFPAY | PROVIDERS: PCP Nurse Practitioner Family; Visit Provider Internal Medicine Cardiovascular Disease | DX: I34.0 Nonrheumatic mitral (valve) insufficiency (principal) | CPT/HCPCS: 93306 ==

== ENCOUNTER 2024-08-31 13:51 | Outpatient (AMB) | payer MEDICAID, SELFPAY ==
--- NOTE | 2024-08-31 14:34 | MHC.OFFVIS ---
Vital Signs 08/31/24 14:38 Height 5 ft 8 in Weight 169 lb 5.04 oz BMI 25.7 BP 110/64 Blood Pressure Location Lt brachial Position Sitting Pulse 86 Pulse Source Pulse Oximeter Intake Visit Reasons: 3m follow up Intake Note: 3 mth f/up Allergies No Known Allergies Allergy (Verified 05/25/24 14:24) Medication List - Last Reconciled 08/31/24 by Damon Blum MD aspirin (Adult Aspirin Regimen) 81 mg PO DAILY atorvastatin 80 mg PO BEDTIME carvedilol 12.5 mg PO BID sacubitril-valsartan 24-26 mg (Entresto) 1 tab PO BID varenicline tartrate 1 mg PO BID 90 days HPI Comments Details: [age] year gentleman who is here for follow-up. He was seen at [facility] when he presented with anterior wall WY and had plaque rupture in the ostium of the LAD. This was treated with drug-eluting stent. He had moderate LV dysfunction afterwards. Repeat echocardiography recently has shown EF 35-40%. He has no indication for ICD placement. He has no chest discomfort shortness of breath. No symptoms/signs of heart failure. Taking medications regularly. No bleeding concerns. [facility] Surgical History History of cardiac cath Family History Brother Diabetes High blood pressure Social History Patient Tobacco Use Status: Former Tobacco user Review of Systems Const Denies chills, Denies fatigue, Denies fever(s), Denies frequent falls, Denies weakness, Denies weight gain and Denies weight loss ENT Denies dizziness Card Denies chest pain, Denies leg edema, Denies lightheadedness, Denies palpitations, Denies dyspnea and Denies dyspnea on exertion Resp Denies cough, Denies dyspnea and Denies dyspnea on exertion GI Denies hematochezia Musc Denies abnormal gait, Denies muscle weakness, Denies numbness, Denies radiating pain into limb and Denies tingling Neuro Denies abnormal gait, Denies dizziness, Denies frequent falls, Denies numbness, Denies tingling and Denies weakness Endo Denies fatigue and Denies palpitations Physical Exam Vital Signs: Last Vital Signs Pulse 86 08/31/24 14:38 BP 110/64 08/31/24 14:38 BMI result Body Mass Index 25.7 GENERAL APPEARANCE: in no acute distress, pleasant. He is deaf and required mechanical cad designer. NECK: no carotid bruit, no jugular venous distention. SKIN: no suspicious lesions, warm and dry. HEART: no murmurs, regular rate and rhythm. LUNGS: clear to auscultation bilaterally. ABDOMEN: soft, nontender. EXTREMITIES: no edema. PERIPHERAL PULSES: equal. NEUROLOGIC: No gross deficits, AAO X 3 Assessment & Plan Assessment & Plan (1) Cardiomyopathy: Code(s): I42.9 - Cardiomyopathy, unspecified Category: Medical (2) HTN (hypertension): Code(s): I10 - Essential (primary) hypertension Category: Medical (3) STEMI (ST elevation myocardial infarction): Code(s): I21.3 - ST elevation (STEMI) myocardial infarction of unspecified site Category: Medical Plan [age] year gentleman presenting for follow-up. He had anterior wall WY with drug-eluting stent placed to the ostium of LAD. EF is 35-40%. He is deaf and required mechanical cad designer. Clinically he is euvolemic at this point and has no symptoms/signs of heart failure. Also denying any anginal symptoms. We will continue same medications for now. He will follow up with Anabel in 4 months. Patient Instructions - Continue taking prescribed medications as directed. - Engage in regular physical activity; report any chest discomfort or breathing difficulties. - Monitor for symptoms such as leg swelling, shortness of breath, particularly when lying down. - Attend the follow-up appointment in four months to reassess cardiac condition. - Report any new or worsening symptoms promptly. Coding Level of Care Code Est Pt Level 4 (41248) Diagnoses Cardiomyopathy I42.9 HTN (hypertension) I10 STEMI (ST elevation myocardial infarction) I21.3
[2024-08-31 14:38] VITALS: BP 110/64; PULSE 86; BMI 25.7
--- OUTSIDE RECORDS SUMMARY | 2024-08-31 16:04 | XMS_ITS | Encounter Summary ---
Author Organization [employer] Address [address] [place] [address] Care Team Providers Care Wash Operator Name Role Phone Darling Segura Primary Care Provider [phone] Encounter Details Date Type Department Care Team (Late st Contact Info) Description 07/31/2023 Orders Only [facility] [address] [place] [address] Darling Segura FNP [address] [place] [address] Social History Tobacco Use Types Packs/Day Years Used Date Smoking Tobacco: Every Day Cigarettes 0.8 28.3 Started: 1996 Passive Smoke Exposure: Current Smokeless Tobacco: Never Comments:Not ready to quit. Alcohol Use Standard Drinks/Week Comments Yes 6 (1 standard drink = 0.6 oz pur e alcohol) 2-3 times per weeks Housing Stability Answer Date Recorded What is your housing situation today? I have sreekanth moulton 03/04/[address] you li ve. Do you have problems with any of the following? None of the above 03/04/2023 Food Insecurity Answer Date Recorded Within the past 12 months, y ou worried that your food would run out before you got money to buy more: Never True 03/04/2023 Within the past 12 months,th e food you bought just didn't last and you didn't have enough money to get more: Never True Transportation Answer Date Recorded In the past 12 months, has l ack of transportation kept you from medical appts, meetings, work or from getting things needed for daily living? No 03/04/2023 Utilities Answer Date Recorded In the past 12 months, has t he electric, gas, oil or water company threatened to shut off services in your home? No 03/04/2023 Depression Answer Date Recorded Patient Health Questionnaire-2 Score 0 01/30/2023 Sex and Gender Information Value Date Recorded Sex Assigned at Male 10/19/2022 10:40 AM EDT Legal Sex Male 10:09 AM EDT Gender Identity Male 10/19/2022 10:40 AM EDT Sexual Orientation John 01/30/2023 5: 01 PM EDT documented as of this encounter Plan of Treatment Upcoming Encounters Date Type Department Care Team (Late st Contact Info) Description 12/08/2024 8:15 AM EDT Office Visit [facility] MEDICAL [address] [place] [address] Adenike uHff DO [address] [place] [address] documented as of this encounter Procedures Procedure Name Priority Date/Time Associated Diagnosis Comments ECG 12-LEAD Routine 07/30/2023 3:19 PM EDT ECG 12-LEAD Routine 07/29/2023 3:17 PM EDT TRANSTHORACIC ECHO (TTE) COMPLETE Routine 07/29/2023 3:16 PM EDT ECG 12-LEAD Routine 07/28/2023 3:18 PM EDT documented in this encounter Results * ECG 12 lead (07/30/2023 3:19 PM EDT) [facility] ECG ORDERABLES Final Result * ECG 12 lead (07/29/2023 3:17 PM EDT) [facility] Kann EMERGENCY DOCTOR ECG ORDERABLES Final Result * Transthoracic echo (TTE) complete (07/29/2023 3:16 PM EDT) [facility] CV ECHO PROCEDURES Final Result * ECG 12 lead (07/28/2023 3:18 PM EDT) [facility] ECG ORDERABLES Final Result documented in this encounter Visit Diagnoses Not on filedocumented in this encounter Care Teams Wash Operator Relationship Specialty Start Date End Date Darling Segura FNP [address] [place] [address] PCP - General Family Medicine 10/19/22 documented as of this encounter
--- OUTSIDE RECORDS SUMMARY | 2024-08-31 16:04 | XMS_ITS | Patient Health Record ---
Author Organization [facility] Address [address] [place] [id number] Care Team Providers Care Manager Telecom Name Role Phone Jamey Todd Primary Care Provider [phone] Allergies Allergen (clinical drug ingredient) Drug/Non Drug Allergy documented on EMR Reaction Allergy Type Onset Date Status dust (uncoded) Unknown Allergy Activ e Reason For Referral No Information Medications Medication SIG (Take, Route, Frequency, Duration) Notes Start Date End Date Status Blood pressure cuff for I10 hypertension use once daily or as needed, duration 30 days, dispense 1, refills=0 as directed 02/14/2021 Active Zoster Vac Recomb Adjuvanted 50 MCG/0.5ML as directed Intramuscular once for 1 dose(s) Active Immunizations Vaccine Route Administration Date Status Comme nts Boostrix (Tdap) ages 10 yrs-64 yrs IM Intramuscular 03/20/2021 Administered Influenza 6 MTHS and Older Pres Free IIV4 IM Intramuscular 03/20/2021 Administered Pneumococcal 23 (65 yrs or > and 2 yrs-64 yrs) IM Intramuscular 03/20/2021 Administered Problems Problem Type SNOMED Code ICD Code Onset Dates Problem Status W/U Status Risk Notes Problem 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 Problem 80030359 Essential hypertension (I10) Active confirmed Problem Tobacco user (345431909) Cigarette nicotine dependence, uncomplicated (F17.210) Active confirmed Problem Generalized chronic periodontitis (231804334) Generalized chronic slight periodontitis (K05.321) Active confirmed Problem 13337279 Cough (R05.9) Active confirmed Plan Of Treatment Pending Test Test Name Order Date CHEST FRONTAL & LAT 02/14/2021 Insurance Providers Payer Name Payer Address Payer Phone Subscriber Number Group Number Insured Name Patient Relationship to Insured Coverage Start Date Coverage End Date MVP [address] [place] [id number] Bartolome Spencer Self - patient is the insured 1 [employer] [place] [address] [place] [id number] Bartolome Spencer Self - patient is the insured 1 Medical (General) History Medical History History ICD Code pneumonia 4 yeras ago . He went to ED [facility]. Deaf- at age 11 months he had high fever and lost his hearing. Surgical History Surgery Date(Month/Year) tubes in earsa as a baby
--- OUTSIDE RECORDS SUMMARY | 2024-08-31 16:04 | XMS_ITS | Encounter Summary ---
Author Organization [employer] Address [address] [place] [address] Care Team Providers Care Clinical Documentation Developer Name Role Phone Darling Segura Primary Care Provider [phone] Encounter Details Date Type Department Care Team (Late st Contact Info) Description 12/11/2023 Orders Only [facility] [address] [place] [address] Darling Segura FNP [address] [place] [address] Social History Tobacco Use Types Packs/Day Years Used Date Smoking Tobacco: Former Cigarettes 0.8 34 0 05/20/1996 - 08/12/2023 Passive Smoke Exposure: Current Smokeless Tobacco: Never Comments:Not ready to quit. 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 Not on file Not on file documented as of this encounter Plan of Treatment Upcoming Encounters Date Type Department Care Team (Late st Contact Info) Description 12/08/2024 8:15 AM EDT Office Visit [facility] MEDICAL [address] [place] [address] Adenike Huff DO [address] [place] [address] documented as of this encounter Procedures Procedure Name Priority Date/Time Associated Diagnosis Comments CARDIAC EVENT MONITOR Routine 09/27/2023 1:51 PM EDT TRANSTHORACIC ECHO (TTE) COMPLETE Routine 09/13/2023 1:50 PM EDT documented in this encounter Results * Cardiac event monitor (09/27/2023 1:51 PM EDT) Darling [facility] PROCEDURES F inal Result * Transthoracic echo (TTE) complete (09/13/2023 1:50 PM EDT) Darling SCHWARTZ CV ECHO PROCEDURES Final Result documented in this encounter Visit Diagnoses Not on filedocumented in this encounter Care Teams Clinical Documentation Developer Relationship Specialty Start Date End Date Darling Segura FNP [address] [place] [address] PCP - General Family Medicine 10/19/22 documented as of this encounter
--- OUTSIDE RECORDS SUMMARY | 2024-08-31 16:04 | XMS_ITS | Encounter Summary ---
Author Organization [employer] Address [address] [facility] [facility] [address] [place] [address] Care Team Providers Care National Park Ranger Name Role Phone Darling Segura EFREN Primary Care Provider Reason for Visit * Reason Comments Med Refill Encounter Details Date Type Department Care Team (Late st Contact Info) Description 10/11/2023 Refill [facility] [address] [place] [address] Adenike Huff DO [address] [place] [address] Toenail fungus Social History Tobacco Use Types Packs/Day Years Used Date Smoking Tobacco: Former Cigarettes 0.8 27.2 1 997 - 08/12/2023 Passive Smoke Exposure: Current Smokeless Tobacco: Never Comments:Not ready to quit. 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 * Telephone Encounter - Kia Meadows - 10/17/2023 4:35 PM EDT Patient returned call with help of bilingual interpreter. Patient will call back in the a.m. * Telephone Encounter - Belkis Pro RN - 10/17/2023 2:11 PM EDT Called pt. LM w/household member for pt.to call. * Telephone Encounter - Stacy Yen LPN - 10/15/2023 2:25 PM EDT Call placed to patient. LMOM to return call. documented in this encounter Plan of Treatment Upcoming Encounters Date Type Department Care Team (Late st Contact Info) Description 12/08/2024 8:15 AM EDT Office Visit [facility] MEDICAL [address] [place] [id number] Adenike Huff DO [address] [facility] [place] [address] documented as of this encounter Visit Diagnoses Diagnosis Toenail fungus documented in this encounter Care Teams National Park Ranger Relationship Specialty Start Date End Date Darling Segura FNP [address] [facility] [place] [address] PCP - General Family Medicine 10/19/22 documented as of this encounter
--- OUTSIDE RECORDS SUMMARY | 2024-08-31 16:04 | XMS_ITS | Clinical Summary ---
Author Organization [employer] Address [address] [place] [address] [address] [place] [address] Care Team Providers Care Computing Consultant Name Role Phone Darling Segura DOG RACES MANAGER Primary Care Provider [phone] Allergies Active Allergy Reactions Criticality Noted Date Comments Dust Mite Extract Runny nose 01/30/2023 Medications Aspirin Low Dose 81 MG EC tablet Take 81 mg by mouth in the morning. 4 Active carvedilol (Coreg) 6.25 MG tablet Take 6.25 mg by mouth 2 times daily. 4 Active Varenicline Tartrate, Starter, 0.5 MG X 11 & 1 MG X 42 tablet therapy pack TAKE DIRECTED ON PACKAGING 4 Active nicotine (Nicoderm, Step 1) 21 MG/24HR patchIndication s:Tobacco use Place 1 patch on the skin 1 (one) time each day at the same time for 28 days. 28 patch 3 4 Active Additional Information Patient not taking.Reported on 06/10/2024 nicotine (Nicoderm, Step 2) 14 MG/24HR patchIndication s:Tobacco use PLACE 1 PATCH ON THE SKIN 1 (ONE) TIME EACH DAY AT THE SAME TIME FOR 28 DAYS. 28 patch 4 Active Entresto 24-26 MG tablet Take 1 tablet by mouth 2 times daily. 4 Active atorvastatin (Lipitor) 80 MG tablet Take 80 mg by mouth Once per day. Active Active Problems Problem Noted Date Diagnosed Date Former smoker 06/10/[address] elevation myocardial infarction (S GRIS) 08/06/2023 07/28/2023 Overview (02/27/2024): Images from the original note were not included. Hospitalized 07/28/23 - 07/30/23 at [facility] STEMI presenting with chest pain Treated with coronary angioplasty and stenting Dc'd amlodipine ASA and Ticagrelor for DAPT Started JILLIAN (valsartan) and increased atorvastatin to 80 mg daily Tobacco use - discharged on Chantix and nicotine patches. States he smokes a lot less than before. States Chantix is helpful. Was discharged with LifeVest device to wear at all times except when showering for three months. Cardiology follow up 08/19/23 - scheduled echo for 09/13/23. Starting cardiac rehab 08/26/23 - needs help with transportation. Will be once per week. Can't go more than that because of his schedule. Is back to work - has been able to start slow. Work has been supportive. Hasn't been lifting. [facility] Discharge note 07/30/23: Engaged with cardiology: ECHO 12/06/23: Holter: Cardiology Consult Note 02/2024: Assessment & Plan (08/06/2023 11:09 AM EDT): 07/28/23 S/p angiography and stenting On DAPT, high dose statin, BB, ACEi Follow up with cardiology, cardiac rehab as scheduled Out of work for 3 weeks following hospitalization at the advice of lab technologist to allow for recovery - [facility] ppw filled out Tobacco use 08/06/2023 Overview (09/19/2023): Was smoking 1ppd. Quit smoking 08/12/23 after STEMI. Using Chantix and Nicoderm patches. Assessment & Plan (08/06/2023 11:11 AM EDT): On Chantix and nicotine patches after discharge Encouraged to continue working on cessation Tobacco use disorder, severe, dependence 024 Toenail fungus 03/08/2023 Overview (12/03/2023): Completed treatment! Healthy toenail growing in. Will continue to monitor. Assessment & Plan (08/06/2023 11:13 AM EDT): Seeing improvement but not resolution yet after terbinafine x 3 months Will prescribe for one additional month Discussed cutting back unhealthy nail as new healthy nail grows in Primary hypertension 03/06/2023 Overview (12/12/2023): BP Readings from Last 4 Encounters: 12/03/23 (!) 144/99 08/29/23 107/73 08/06/23 115/87 06/10/23 (!) 136/96 BP above goal. 08/06/23 Amlodipine Dc'd by hospital. Not taking Valsartan - told by pharmacy he can't take with Entresto. Has cardiology follow up on Saturday - will discuss with them at that time. Outside Source Comment: Overview: BP Readings from Last 4 Encounters: 06/10/23 (!) 136/96 04/01/23 (!) 120/92 03/06/23 (!) 158/99 01/30/23 (!) 148/99 Didn't take Amlodipine yet this morning. BP elevated. Denies any medication side effects. Will continue current treatment plan. Assessment & Plan (08/06/2023 11:10 AM EDT): 08/06/23 Amlodipine Dc'd by hospital Started coreg, beta flores BP well controlled, continue current regimen Hyperlipidemia 03/06/2023 Overview (12/12/2023): No results found for: CHOL Lab Results Component Value Date HDL 63 04/01/2023 HDL 58 02/11/2023 Improved on Atorvastatin. Tolerating well. Will continue current treatment plan. Outside Source Comment: Overview: No results found for: CHOL Lab Results Component Value Date HDL 63 04/01/2023 HDL 58 02/11/2023 Improved on Atorvastatin. Tolerating well. Will continue current treatment plan. Prediabetes 03/06/2023 Overview (12/12/2023): Lab Results Component Value Date HGBA1C 5.8 (H) 02/11/2023 Discussed prediabetes. Reviewed lifestyle recommendations - diet and exercise. Will continue to monitor. Outside Source Comment: Overview: Lab Results Component Value Date HGBA1C 5.8 (H) 02/11/2023 Discussed prediabetes. Reviewed lifestyle recommendations - diet and exercise. Will continue to monitor. Bilateral deafness 03/06/2023 Overview (12/12/2023): Lost hearing to high fever at 11 months old. Uses ASL and some lip reading. Visit done with ASL video belly packer. Requesting referral to Audiology for follow up. Wears hearing aid in Left ear. Outside Source Comment: Overview: Lost hearing to high fever at 11 months old. Uses ASL and some lip reading. Visit done with ASL video belly packer. Requesting referral to Audiology for follow up. Wears hearing aid in Left ear. Left leg paresthesias 03/06/2023 Overview (09/23/2023): Images from the original note were not included. MRI done 08/02/23: IMPRESSION: Degenerative changes of the lumbar spine superimposed upon a congenitally-narrowed spinal canal. This finding can be correlated with the patient's symptoms and neurological examination. Tingling x 2 years. Had left foot fracture 21 years ago, no other injury/trauma. Started on its own 2 years ago. Intermittent, mostly with walking a lot. Starts in toes, radiates to front of thigh. Happens daily. Does not notice it at night when sleeping. No limitation to movement or tripping. Seen by NeuroSurg 09/18/23: Encounters Date Type Department Care Team Description 08/11/[address] [facility] MEDICAL [address] [place] [address] Darling Segura FNP PT1 08/04/[address] [facility] MEDICAL [address] [place] [address] Darling Segura FNP PT-1 07/31/2024 Population Health Risk Score [facility] (C[facility]) Department [address] [place] [id number] Provider, Population Health Generic 06/10/2024 8:00 AM EST Office Visit [facility] MEDICAL [address] [place] [address] Diane Escalante FNP-Ewelina Former smoker (Primary Dx); Primary hypertension 06/10/[address] [facility] MEDICAL [address] [place] [address] Darling Segura FNP MEDICAL RECORDS REQUEST ([facility]UROLOG[facility] REPORT FROM [facility]) from Last 3 Months Immunizations Name Administration Dates Next Due Influenza Injectable Quadriv alant Preservative Free IIV4 MDCK 03/06/2023 Influenza, Injectable, MDCK, preservative free 1 Zoster, Recombinant 08/26/2023 Family History Medical History Relation Name Comments Diabetes Brother 1 Jh Diabetes type I Brother 1 Jh Hypertension Brother 1 Hj No Known Problems Brother 2 No Known Problems Brother 3 Diabetes Father Hemanth Diabetes type I Father Hemanth Hypertension Father Hemanth diarrhea Mother No Known Problems Sister Relation Name Status Comments Brother 1 Jh Brother 2 Alive Brother 3 Alive Father Hemanth Alive Mother Alive Sister Alive Social History Tobacco Use Types Packs/Day Years Used Date Smoking Tobacco: Former Cigarettes 0.8 34 0 05/20/1996 - 08/12/2023 Passive Smoke Exposure: Current Smokeless Tobacco: Never Tobacco Cessation:Counseling Given: Not Answered Comments:Not ready to quit. 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 Not on file Not on file Last Filed Vital Signs Vital Sign Reading Time Taken Comments Blood Pressure 133/90 06/10/2024 8:14 AM EST Pulse 77 06/10/2024 8:14 AM EST Temperature 36.5 ??C (97.7 ??F) 06/10/2024 8:14 AM ES T Respiratory Rate 16 06/10/2024 8:14 AM EST Oxygen Saturation 96% 08/29/2023 11:35 AM EDT Inhaled Oxygen Concentration - - Weight 74.8 kg (165 lb) 06/10/2024 8:14 AM EST Height 172.7 cm (5' 8 ) 08/06/2023 10:16 AM EDT Body Mass Index 25.09 08/06/2023 10:16 AM EDT Plan of Treatment Upcoming Encounters Date Type Department Care Team (Late st Contact Info) Description 12/08/2024 8:15 AM EDT Office Visit [facility] MEDICAL [address] [place] [address] Adenike Huff DO [address] [place] [address] Health Maintenance Due Date Last Done Comments Anal Pap 1970 CT Colonography 1970 Colonoscopy 1970 Colorectal Cancer Screening 1970 FIT DNA/Cologuard 1970 FIT 1970 FOBT 1970 HIV Screening 1970 Sigmoidoscopy 1970 Alcohol/Substance Use Screening 1982 Hepatitis C Screening 1988 DTaP/Tdap/Td Vaccines (1 - Tdap) 1989 Hepatitis A Vaccines (1 of 2 - Risk 2-dose series) 1989 Hepatitis B Vaccines (1 of 3 - 19+ 3-dose series) 1989 Lung Cancer Screening 2020 Pneumococcal Vaccine: 50+ Years (1 of 1 - PCV) 2020 Zoster Vaccines (2 of 2) 10/21/2023 08/26/2023 COVID-19 Vaccine (1 - 2023-2 5 season) 2024 Depression Screening 01/31/2024 01/30/2023, 01/30/2023 SDOH Screening 01/31/2024 01/30/2023 Diabetes: Hemoglobin A1C 04/01/2024 023, 02/11/2023 Tobacco Screening 12/02/2024 12/03/2023 Lipid Panel 04/01/2028 04/01/2023, 02/11/2023, 02/11/2023 RSV Patients and Patients Aged 60 years or older (1 - 1-dose 75+ series) 2045 Influenza Vaccine Completed 02/21/2024, 03/06/2023 HIB Vaccines Aged Out No longer eligi ble based on patient's age to complete this topic HPV Vaccines Aged Out No longer eligi ble based on patient's age to complete this topic IPV Vaccines Aged Out No longer eligi ble based on patient's age to complete this topic Meningococcal Vaccine Aged Out No johanne johan eligible based on patient's age to complete this topic RSV under 20 months Aged Out No longe r eligible based on patient's age to complete this topic Rotavirus Vaccines Aged Out No longer eligible based on patient's age to complete this topic Procedures Procedure Name Priority Date/Time Associated Diagnosis Comments HEMOGLOBIN A1C Routine 04/01/2023 9:30 AM EST Prediabetes LIPID PANEL, STANDARD Routine 04/01/2023 9:30 AM EST Hyperlipidemia, unspecified hyperlipidemia type from Last 3 Months or Most Recently Relevant to Health Maintenance Results * (ABNORMAL) Hemoglobin A1c (04/01/2023 9:30 AM EST) Hemoglobin A1C 6.1(H) (4.0-5.6) % [facility] Comment: MONITORING: In known diabetic patients, hemoglobin A1c targets should be discussed with health care provider. DIAGNOSTIC USE: ??The [place] Diabetes Association (ADA) and the World Health Organization (WHO) recommend the use of HbA1c to diagnose diabetes using a threshold of 6.5%. Patients who have an HbA1c between 5.7% and 6.4% are considered at increased risk for developing diabetes in the future. CAUTION: Falsely low HbA1c results may be observed in patients with hemolytic anemia, homozygous forms of abnormal hemoglobin (e.g. SS, CC, SC), , recent blood loss or hemoglobin F greater than 7%. Fructosamine may be used as an alternate test in these cases. REFERENCE: ADA: Standards of Medical Care in Diabetes 2020, The Journal of Clinical and Applied Research and Education Volume 43, Supplement 1 Testing performed or reported by [facility] Reference Standard [employer], a Service of [facility], [address] [place] [address] Alex Jeter MD, Medical Supply Technician [facility]# [id number] Blood Venous blood specimen / Unknown 04/01/2023 9:30 AM EST 04/01/2023 9:32 AM EST Darling Segura [facility] BLOOD ORDERABLES Final Resul t [facility] [address] [place] [id number] * (ABNORMAL) Lipid panel (04/01/2023 9:30 AM EST) Cholesterol, Total 192 (<200) MG/DL [facility] Triglyceride (mg/dL) in Serum/Plasma 169(H) (<150) MG/DL [facility] HDL Cholesterol 63 (>39) MG/DL [facility] LDL Cholesterol, Calculated 95 (0-130) MG/DL [facility] Non HDL Chol. (LDL+VLDL) 129 (<160) MG/DL [facility] Comment: Testing performed or reported by [facility], a Service of [facility], [address] [place] [id number] Alex Jeter MD, Medical Supply Technician [facility]# [id number] Blood Venous blood specimen / Unknown 04/01/2023 9:30 AM EST 04/01/2023 9:32 AM EST Darling SCHWARTZ LAB BLOOD ORDERABLES Final Resul t [facility] [address] [place] [address] from Last 3 Months or Most Recently Relevant to Health Maintenance Insurance [employer] Care Teams Computing Consultant Relationship Specialty Start Date End Date Darling Segura FNP [address] [place] [address] PCP - General Family Medicine 10/19/22
--- OUTSIDE RECORDS SUMMARY | 2024-08-31 16:04 | XMS_ITS | Encounter Summary ---
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 Not on file Not on file documented as of this encounter Plan of Treatment Upcoming Encounters Date Type Department Care Team (Late st Contact Info) Description 12/08/2024 8:15 AM EDT Office Visit [facility] MED[facility] [address] [place] [address] Adenike Huff DO [address] [place] [address] documented as of this encounter Procedures Procedure Name Priority Date/Time Associated Diagnosis Comments CBC WITH AUTO DIFFERENTIAL Routine 05/25/2024 10:49 AM EST documented in this encounter Results * CBC auto differential (05/25/2024 10:49 AM EST) Blood Venous blood specimen / Unknown Darling SCHWARTZ LAB BLOOD ORDERABLES Final Resul t documented in this encounter Visit Diagnoses Not on filedocumented in this encounter Care Teams Trimmer And Borer Machine Operator Relationship Specialty Start Date End Date Darling Segura FNP [address] [place] [address] PCP - General Family Medicine 10/19/22 documented as of this encounter
== END 2024-08-31 15:02 | disposition home or self-care (01) ==
LOC: HO.HCS 13:51
PROVIDERS: PCP Nurse Practitioner Family; Visit Provider Internal Medicine Cardiovascular Disease
DX: I42.9 Cardiomyopathy, unspecified (principal); I10 Essential (primary) hypertension; I21.3 ST elevation (STEMI) myocardial infarction of unspecified site
CPT/HCPCS: 99214

== ENCOUNTER → 2024-08-31 13:51 | Outpatient (BNVA) | payer MEDICAID, SELFPAY | PROVIDERS: PCP Nurse Practitioner Family; Visit Provider Internal Medicine Cardiovascular Disease | DX: I42.9 Cardiomyopathy, unspecified (principal); I10 Essential (primary) hypertension; I21.3 ST elevation (STEMI) myocardial infarction of unspecified site | CPT/HCPCS: 99212 ==

== ENCOUNTER 2025-01-08 10:05 | Outpatient (AMB) | payer MEDICAID, SELFPAY ==
[2025-01-08 10:08] VITALS: BP 130/84; PULSE 83; BMI 24.9
--- NOTE | 2025-01-08 10:08 | MHC.OFFVIS ---
Vital Signs 01/08/25 10:08 Height 5 ft 8 in Weight 163 lb 9.328 oz BMI 24.9 BP 130/84 Blood Pressure Location Lt brachial Position Sitting Pulse 83 Pulse Source Monitor Intake Visit Reasons: 4 mth fu (KM) Top Collar Maker Required: Yes Top Collar Maker Language: Supervisor [employer] Name: voice nicole Allergies No Known Allergies Allergy (Verified 01/08/25 10:10) Medication List - Last Reconciled 01/08/25 by PATRICK Rushing aspirin (Adult Aspirin Regimen) 81 mg PO DAILY atorvastatin 80 mg PO BEDTIME carvedilol 12.5 mg PO BID sacubitril-valsartan 24-26 mg (Entresto) 1 tab PO BID varenicline tartrate 1 mg PO BID 90 days HPI HPI 4 mth fu (KM): Details: Bartolome is a 54-year-old male with past medical history of hypertension, smoking, anterior KS 07/2023, with cardiac catheterization and stenting of the proximal LAD, residual ischemic cardiomyopathy who presents for follow-up. Today he reports he has been doing well since his last visit in August. He denies having chest discomfort at rest or during activity. No shortness of breath, palpitations, lightheadedness, presyncope, syncope, PND, orthopnea or edema. Taking all meds as directed. 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 He is hearing impaired. educational sign language interpreter used at this visit. [facility] Surgical History History of cardiac cath Family History Brother Diabetes High blood pressure Social History Patient Tobacco Use Status: Former Tobacco user Review of Systems Const All systems reviewed & are unremarkable except as noted in HPI and below ENT Denies dizziness Card Denies chest pain, Denies chest pain at rest, Denies chest pain with activity, Denies rapid heart rate, Denies pedal edema, Denies edema, Denies leg edema, Denies lightheadedness, Denies palpitations, Denies dyspnea, Denies dyspnea on exertion and Denies orthopnea Resp Denies cough, Denies dyspnea and Denies dyspnea on exertion GI Denies hematochezia and Denies change in stool character Musc Denies abnormal gait, Denies limited range of motion, Denies muscle cramps, Denies muscle weakness, Denies numbness, Denies radiating pain into limb, Denies stiffness and Denies tingling Neuro Denies abnormal gait, Denies dizziness, Denies numbness and Denies tingling Endo Denies palpitations Physical Exam Vital Signs: Last Vital Signs Pulse 83 01/08/25 10:08 BP 130/84 01/08/25 10:08 BMI result Body Mass Index 24.9 Const General: cooperative, healthy appearing, comfortable and no acute distress Orientation/consciousness: patient oriented x3 HEENT Other: hearing impaired Neck Neck: Yes normal visual inspection and Yes no JVD Resp Effort & Inspection: normal respiratory effort Auscultation: clear to auscultation bilaterally, no crackles, no rales, no rhonchi and no wheezes Cardio Jugular venous distension: no JVD Rate: regular rate Rhythm: regular rhythm Heart sounds: S1 normal heart sound present, S2 normal heart sound present, no murmurs and no rubs Neuro General: patient oriented x3 Extrem General: Yes normal to inspection and No no pedal edema Psych Appearance: grossly normal Mental Status: mental status grossly normal Speech and movement: Normal speech and movement present Office Procedures EKG Details: Today, read by me, normal sinus rhythm, left anterior fascicular block, septal infarct, rate 83, QTC 432 millisecond [id number], Complete Assessment & Plan Assessment & Plan (1) STEMI (ST elevation myocardial infarction): Code(s): I21.3 - ST elevation (STEMI) myocardial infarction of unspecified site Category: Medical Plan: Anterior STEMI 07/28/2023. Underwent emergent cardiac catheterization at [facility] showing proximal LAD, mid portion 90% stenosis with thrombus present, 1st diagonal 100% stenosis. A ASHLEY was placed to the LAD. His echocardiogram showed EF 35% with anterior wall hypokinesis. He has been on appropriate medications and has done well since that time. Most recent echocardiogram 07/25/2024 showing EF 35-40% with wall motion abnormality in the LAD territory. No signs of heart failure on examination. Continue aspirin indefinitely. Continue high-dose atorvastatin with LDL goal less than 70. Continue, carvedilol and Entresto for neurohormonal modulation. Signs and symptoms of angina, Congestive heart failure reviewed with him. Cardiology follow-up in 6 months, sooner if needed. (2) HTN (hypertension): Code(s): I10 - Essential (primary) hypertension Category: Medical Plan: Blood pressure goal less than 130/80. Controlled at present. Continue carvedilol, Entresto. (3) Smoking: Code(s): F17.200 - Nicotine dependence, unspecified, uncomplicated Category: Social Hx Plan: Prior smoker. Reports that he has recently stopped, applauded on this. (4) History of cardiac cath: Comment: 07/28/2023, left main normal, lad proximal mid 90% stenosis, thrombus present, 1st diagonal 100% stenosis, RCA mild irregularities less than 30%, left circumflex minimal irregularities, proximal ostial less than 30% stenosis, ASHLEY placed to the LAD. Code(s): Z98.890 - Other specified postprocedural states Category: Surgical Plan: As above (5) Cardiomyopathy: Code(s): I42.9 - Cardiomyopathy, unspecified Category: Medical Plan: Ischemic cardiomyopathy, EF 35-40%. ICD is not indicated. No signs of heart failure on examination. Continue neurohormonal modulation with carvedilol and Entresto. Not requiring diuretic therapy. Plan Time spent on chart review, documentation, interview and assessment Coding Level of Care Code Est Pt Level 3 (06956) Complex EM visit Add On G2211 Diagnoses STEMI (ST elevation myocardial infarction) I21.3 HTN (hypertension) I10 Smoking F17.200 History of cardiac cath Z98.890 Cardiomyopathy I42.9 CPT Codes EKG - CPT: 87783-[id number], Complete ([id number]) Time Spent (min) 24
--- OUTSIDE RECORDS SUMMARY | 2025-01-08 10:08 | XMS_ITS | Patient Health Record ---
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) Active confirmed Problem Essential hypertension (22993035) Essential hypertension (I10) Active confirmed Problem Tobacco user (451951050) Cigarette nicotine dependence, uncomplicated (F17.210) Active confirmed Problem Generalized chronic periodontitis (260046720) Generalized chronic slight periodontitis (K05.321) Active confirmed Problem Cough (85236696) Cough (R05.9) Active confirmed Plan Of Treatment Pending Test Test Name Order Date CHEST FRONTAL & LAT 02/14/2021 Insurance Providers Payer Name Payer Address Payer Phone Subscriber Number Group Number Insured Name Patient Relationship to Insured Coverage Start Date Coverage End Date MVP [address] [place] [address] [id number] Bartolome Spencer Self - patient is the insured 1 [employer] [place] [address] [place] [phone] [id number] Bartolome Spencer Self - patient is the insured 1 Medical (General) History Medical History History ICD Code pneumonia 4 yeras ago . He went to ED [facility]. Deaf- at age 11 months he had high fever and lost his hearing. Surgical History Surgery Date(Month/Year) tubes in earsa as a baby
--- OUTSIDE RECORDS SUMMARY | 2025-01-08 10:08 | XMS_ITS | Encounter Summary ---
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 Not on file Not on file documented as of this encounter Plan of Treatment Upcoming Encounters Date Type Department Care Team (Late st Contact Info) Description 06/11/2025 8:45 AM EST Office Visit [facility] [address] [place] [address] Adenike Huff DO [address] [place] [address] documented as of this encounter Procedures Procedure Name Priority Date/Time Associated Diagnosis Comments CBC WITH AUTO DIFFERENTIAL Routine 05/25/2024 10:49 AM EST documented in this encounter Results * CBC auto differential (05/25/2024 10:49 AM EST) Blood Venous blood specimen / Unknown Darling SCHWARTZ LAB BLOOD ORDERABLES Final Resul t documented in this encounter Visit Diagnoses Not on filedocumented in this encounter Care Teams Investment Counselor Relationship Specialty Start Date End Date Darling Segura FNP [address] [place] [address] PCP - General Family Medicine 10/19/22 documented as of this encounter
== END 2025-01-08 10:51 | disposition home or self-care (01) ==
LOC: HO.HCS 10:06
PROVIDERS: PCP Nurse Practitioner Family; Visit Provider Nurse Practitioner Family
DX: I21.3 ST elevation (STEMI) myocardial infarction of unspecified site (principal); I10 Essential (primary) hypertension; F17.200 Nicotine dependence, unspecified, uncomplicated; Z98.890 Other specified postprocedural states; I42.9 Cardiomyopathy, unspecified
CPT/HCPCS: 93010; 99213

== ENCOUNTER → 2025-01-08 10:05 | Outpatient (BNVA) | payer MEDICAID, SELFPAY | PROVIDERS: PCP Nurse Practitioner Family; Visit Provider Nurse Practitioner Family | DX: I10 Essential (primary) hypertension (principal); I21.3 ST elevation (STEMI) myocardial infarction of unspecified site; F17.200 Nicotine dependence, unspecified, uncomplicated; I42.9 Cardiomyopathy, unspecified; Z98.890 Other specified postprocedural states | CPT/HCPCS: 93005; 99212 ==